=== PATIENT | female | born 1980 | race Hispanic/Latino ===

== ENCOUNTER 2025-05-16 13:31 | Outpatient (CLI) | payer OTHER ==
[~2025-05-16] VITALS: Ht 152.4 cm; Wt 65.9 kg
[~2025-05-16 13:31] MED LIST: ALBUTEROL SULFATE 2.5 MG/0.5 ML INH CONCENTRATE NEB SOLN INH PRN; EPINEPHrine INJ 1 MG/ML 1ML AMP IM PRN; diphenhydrAMINE 50 MG/ML VIAL IV PRN
[2025-05-16 13:45] VITALS: BP 159/84; O2SAT 99
[2025-05-16] MEDS: FERRIC CARBOXYMALTOSE 750 MG (VIAL MATE) IN 100ML NS IV ONE (13:48)
[2025-05-16 14:30] VITALS: BP 138/89; O2SAT 99
== END 2025-05-16 14:30 | disposition home or self-care (01) ==
LOC: M INFU 13:31
PROVIDERS: ATTEND Obstetrics & Gynecology
DX: D50.9 Iron deficiency anemia, unspecified (principal)
CPT/HCPCS: 96365; J1439

== ENCOUNTER 2025-05-23 13:56 | Outpatient (CLI) | payer OTHER ==
[~2025-05-23] VITALS: Ht 152.4 cm; Wt 65.9 kg
[2025-05-23] MEDS ORDERED: NS (Normal Saline) 0.9% 1,000 ML IV SCH (14:00)
[2025-05-23] MEDS: FERRIC CARBOXYMALTOSE 750 MG (VIAL MATE) IN 100ML NS IV ONE (14:13)
[2025-05-23 14:35] VITALS: BP 130/78; O2SAT 100
== END 2025-05-23 14:40 ==
LOC: M INFU 13:56 → EDUNIT# 14:00 → M INFU 14:40
PROVIDERS: ATTEND Obstetrics & Gynecology
DX: D50.9 Iron deficiency anemia, unspecified (principal)
CPT/HCPCS: 96365; J1439